=== PATIENT | female | born 1990 | race Caucasian/White ===

== ENCOUNTER → 2018-01-24 | Outpatient (REF) | payer OTHER, BC ==
[2018-01-24 14:59] LABS: INFLUENZA A AMPLIFICATION NEGATIVE (NEGATIVE); INFLUENZA B AMPLIFICATION NEGATIVE (NEGATIVE)
== END ==
LOC: M LAB REF 14:20
DX: J11.1 Influenza due to unidentified influenza virus with other respiratory manifestations (principal)

== ENCOUNTER → 2018-07-12 | Outpatient (REF) | payer BC ==
[2018-07-12 15:41] LABS: APPEARANCE, URINE CLOUDY (CLEAR); BACTERIA, URINE AUTO 2+ (NEGATIVE); BILIRUBIN, URINE AUTO 1+ (NEGATIVE); BLOOD, URINE BLOOD 2+ (NEGATIVE); COLOR, URINE AMBER (YELLOW); GLUCOSE, URINE (UA) AUTO NEGATIVE (NEGATIVE); KETONE, URINE AUTO TRACE mg/dL (NEGATIVE); LEUKOCYTE ESTERASE, URINE AUTO 2+ (NEGATIVE); MUCUS, URINE SMALL (NEGATIVE); NITRITE, URINE AUTO NEGATIVE (NEGATIVE); PROTEIN, URINE AUTO 2+ mg/dL (NEGATIVE); RBC, URINE AUTO TNTC /HPF (0-3); SPECIFIC GRAVITY URINE AUTO 1.028 (1.002-1.035); SQUAMOUS EPITHELIAL CELL UR AU 13 /HPF (0-6); WBC, URINE AUTO TNTC /HPF (0-3)
== END ==
LOC: M LAB REF 15:22
PROVIDERS: ATTEND Physician Assistant Medical
DX: N39.0 Urinary tract infection, site not specified (principal)

== ENCOUNTER → 2024-11-02 | Outpatient (REF) | payer OTHER | LOC: M PLALAB 10:30 | PROVIDERS: ATTEND Nurse Practitioner Family | DX: O99.322 Drug use complicating pregnancy, second trimester (principal); Z3A.00 Weeks of gestation of pregnancy not specified ==

== ENCOUNTER → 2024-11-06 | Outpatient (CLI) | payer OTHER | LOC: M WHC 14:03 | PROVIDERS: ATTEND Nurse Practitioner Family | DX: Z34.82 Encounter for supervision of other normal pregnancy, second trimester (principal); Z3A.19 19 weeks gestation of pregnancy ==

== ENCOUNTER → 2024-11-29 | Outpatient (CLI) | payer OTHER | LOC: M WHC 14:57 | PROVIDERS: ATTEND Nurse Practitioner Family | DX: O09.512 Supervision of elderly primigravida, second trimester (principal); Z36.2 Encounter for other antenatal screening follow-up; Z3A.23 23 weeks gestation of pregnancy ==

== ENCOUNTER → 2024-12-25 | Outpatient (CLI) | payer OTHER | LOC: M WHC 09:29 | PROVIDERS: ATTEND Obstetrics & Gynecology | DX: O09.512 Supervision of elderly primigravida, second trimester (principal); Z36.2 Encounter for other antenatal screening follow-up; Z3A.26 26 weeks gestation of pregnancy ==

== ENCOUNTER → 2025-01-04 | Outpatient (CLI) | payer OTHER | LOC: M RAD 06:33 | PROVIDERS: ATTEND Nurse Practitioner Family | DX: O13.3 Gestational [pregnancy-induced] hypertension without significant proteinuria, third trimester (principal); Z3A.29 29 weeks gestation of pregnancy ==

== ENCOUNTER → 2025-01-05 | Outpatient (CLI) | payer OTHER ==
[2025-01-05 15:39] LABS: TOTAL PROTEIN,RANDOM URINE 20.4 MG/DL (0.0-14.0)
[2025-01-05 15:46] LABS: Trichomonas vaginalis (AMP) NOT DETECTED (NEGATIVE)
[2025-01-05 16:11] LABS: GC DNA AMPLIFICATION NEGATIVE (NEGATIVE)
[2025-01-05 16:20] LABS: PLATELET COUNT, AUTOMATED 343 10^3/uL (150-450)
[2025-01-05 16:48] LABS: GLUCOSE CHALLENGE TEST 1 HOUR 140 MG/DL (LESS THAN 140)
[2025-01-05 17:18] LABS: HIV 1&2 SCREEN NEGATIVE (NEGATIVE)
[2025-01-05 17:24] LABS: HEPATITIS C VIRUS ABY INDEX 0.05 INDEX (<0.8)
== END ==
LOC: M PLALAB 12:14
PROVIDERS: ATTEND Nurse Practitioner Family
DX: O13.3 Gestational [pregnancy-induced] hypertension without significant proteinuria, third trimester (principal); O99.323 Drug use complicating pregnancy, third trimester; Z3A.00 Weeks of gestation of pregnancy not specified

== ENCOUNTER → 2025-01-12 | Outpatient (CLI) | payer OTHER ==
[2025-01-12 13:50] LABS: LDH LACTATE DEHYDROGENASE 130 U/L (120-246)
[2025-01-12 13:51] LABS: ALT/SGPT 10 U/L (7.0-40); AST/SGOT 8 U/L (<34); CREATININE FOR GFR 0.47 MG/DL (0.55-1.30); GLOMERULAR FILTRATION RATE > 90.0 (>60)
== END ==
LOC: M PLALAB 11:21
PROVIDERS: ATTEND Nurse Practitioner Family
DX: O13.3 Gestational [pregnancy-induced] hypertension without significant proteinuria, third trimester (principal); Z3A.00 Weeks of gestation of pregnancy not specified

== ENCOUNTER → 2025-01-16 | Outpatient (CLI) | payer OTHER | LOC: M LAB 06:48 | PROVIDERS: ATTEND Nurse Practitioner Family | DX: R73.09 Other abnormal glucose (principal) ==

== ENCOUNTER → 2025-01-31 | Outpatient (CLI) | payer OTHER | LOC: M RAD 06:49 | PROVIDERS: ATTEND Nurse Practitioner Family | DX: O13.3 Gestational [pregnancy-induced] hypertension without significant proteinuria, third trimester (principal); Z3A.32 32 weeks gestation of pregnancy ==

== ENCOUNTER → 2025-02-23 | Outpatient (REF) | payer OTHER | LOC: M PLALAB 13:20 | PROVIDERS: ATTEND Specialist | DX: O16.3 Unspecified maternal hypertension, third trimester (principal) ==

== ENCOUNTER → 2025-02-23 | Outpatient (CLI) | payer OTHER ==
[2025-02-23 15:31] LABS: PLATELET COUNT, AUTOMATED 321 10^3/uL (150-450)
[2025-02-23 15:35] LABS: LDH LACTATE DEHYDROGENASE 166 U/L (120-246)
[2025-02-23 15:36] LABS: ALT/SGPT 12 U/L (7.0-40); AST/SGOT 11 U/L (<34); CREATININE FOR GFR 0.41 MG/DL (0.55-1.30); GLOMERULAR FILTRATION RATE > 90.0 (>60)
[2025-02-23 15:55] LABS: TOTAL PROTEIN,RANDOM URINE 20.8 MG/DL (0.0-14.0)
== END ==
LOC: M PLALAB 13:42
PROVIDERS: ATTEND Specialist
DX: O16.3 Unspecified maternal hypertension, third trimester (principal); Z3A.00 Weeks of gestation of pregnancy not specified

== ENCOUNTER → 2025-02-28 | Outpatient (CLI) | payer OTHER | LOC: M RAD 06:59 | PROVIDERS: ATTEND Nurse Practitioner Family | DX: O13.2 Gestational [pregnancy-induced] hypertension without significant proteinuria, second trimester (principal) ==

== ENCOUNTER → 2025-03-01 | Outpatient (REF) | payer OTHER ==
[~2025-03-01] MED LIST: ASPI81TA26 PO; COLA100C5 PO; IBUP80TA PO; MULTTAB20 PO; PERCOCET PO
[2025-03-01 18:16] LABS: PLATELET COUNT, AUTOMATED 343 10^3/uL (150-450)
[2025-03-01 18:21] LABS: LDH LACTATE DEHYDROGENASE 183 U/L (120-246)
[2025-03-01 18:22] LABS: ALT/SGPT 15 U/L (7.0-40); AST/SGOT 12 U/L (<34); CREATININE FOR GFR 0.50 MG/DL (0.55-1.30); GLOMERULAR FILTRATION RATE > 90.0 (>60)
[2025-03-01 18:48] LABS: TOTAL PROTEIN,RANDOM URINE 9.5 MG/DL (0.0-14.0)
== END ==
LOC: M SFHCWAGY 17:29
PROVIDERS: ATTEND Obstetrics & Gynecology
DX: R03.0 Elevated blood-pressure reading, without diagnosis of hypertension (principal)